=== PATIENT | male | born 1945 | race Caucasian/White ===

== ENCOUNTER 2022-10-07 12:15 | Observation (INO) | payer OTHER, MEDICARE ==
[~2022-10-07] VITALS: Ht 175.3 cm; Wt 88.8 kg
[2022-10-07] VITALS (16 sets, daily range): BP systolic 83–159; BP diastolic 47–81
[2022-10-07] MEDS ORDERED: ALENDRONATE SOD70 MG PO (12:43)
[2022-10-07] MEDS ORDERED: VITAMIN D2000 UNI1 PO (12:44)
[2022-10-07] MEDS ORDERED: LIPITOR20 M1 PO (12:44)
[2022-10-07] MEDS ORDERED: QC VITAMIN B (12:47)
[2022-10-07] MEDS ORDERED: FOLIC ACID1 MG PO (12:48)
[2022-10-07] MEDS ORDERED: LISINOPRIL10 MG PO (12:48)
[2022-10-07] MEDS ORDERED: TAMSULOSIN HCL0.4 MG PO (12:49)
[2022-10-07] MEDS ORDERED: VYZULTA0.024 % (12:50)
[2022-10-07] MEDS ORDERED: PREDNISONE5 MG PO (12:51)
[2022-10-07 13:40] LABS: BASO% 0.4 % (0-3); EOS% 1.5 % (0-8); HEMATOCRIT 37.6 % (39.0-50.0); HEMOGLOBIN 12.4 g/dl (14.0-18.0); IMMATURE GRANULOCYTES 0.2 % (0.0-5.0); LYMPH% 12.4 % (15-41); MEAN CELL VOLUME 89.7 fL CALC (80.0-100.0); MEAN CORPUSCULAR HGB 29.6 pG CALC (26.0-32.0); MONO% 8.4 % (2-13); NEUT# 7.63 thou/uL (1.82-7.42); NEUT% 77.1 % (42-76); RED BLOOD COUNT 4.19 mill/uL (4.70-6.10); RED CELL DISTRI WIDTH 12.3 % (11.5-15.5)
[2022-10-07 13:50] LABS: ALBUMIN 4.1 g/dL (3.2-5.0); ALKALINE PHOSPHATASE 59 u/l (38-126); ANION GAP 11 (6-22 (CALC)); BILIRUBIN, TOTAL 0.6 mg/dL (0.2-1.3); BUN 23 mg/dL (8-23); BUN/CREATININE RATIO 14 (12-20 (CALC)); CARBON DIOXIDE 23 mmol/l (22-30); CHLORIDE 109 mmol/l (95-108); CREATININE 1.7 mg/dL (0.7-1.3); GFR FOR AFR.AMER. 48 ML/MIN (>=60 (CALC)); GFR OTHER RACES 39 ML/MIN (>=60 (CALC)); POTASSIUM 3.8 mmol/l (3.5-5.1); SGOT/AST 27 u/l (19-48); SODIUM 139 mmol/l (137-146); TOTAL PROTEIN 7.4 g/dL (6.3-8.2)
[2022-10-07 15:07] LABS: URINE BILIRUBIN - DIPSTICK NEGATIVE (NEGATIVE); URINE BLOOD DIPSTICK NEGATIVE (NEGATIVE); URINE COLOR YELLOW; URINE GLUCOSE - DIPSTICK NEGATIVE (NEGATIVE); URINE KETONE NEGATIVE (NEGATIVE); URINE LEUK ESTERASE NEGATIVE (NEGATIVE); URINE PROTEIN - DIPSTICK NEGATIVE (NEG-TRACE); URINE UROBILINOGEN - DIPSTICK 0.2 E.U./dL (0.2)
[2022-10-07 15:13] LABS: URINE NITRITE - DIPSTICK NEGATIVE (Negative)
[2022-10-08] VITALS: BP 132/76
[2022-10-08 04:51] VITALS: BP 139/75
[2022-10-08 05:22] LABS: BASO% 0.5 % (0-3); EOS% 0.5 % (0-8); HEMATOCRIT 37.9 % (39.0-50.0); HEMOGLOBIN 12.7 g/dl (14.0-18.0); IMMATURE GRANULOCYTES 0.2 % (0.0-5.0); LYMPH% 10.9 % (15-41); MEAN CORPUSCULAR HGB 30.2 pG CALC (26.0-32.0); MEAN CORPUSCULAR HGB CONC 33.5 g/dL CAL (32.0-36.0); NEUT# 4.87 thou/uL (1.82-7.42); NEUT% 83.9 % (42-76); RED BLOOD COUNT 4.21 mill/uL (4.70-6.10); RED CELL DISTRI WIDTH 12.2 % (11.5-15.5)
[2022-10-08 05:39] LABS: ALBUMIN 3.5 g/dL (3.2-5.0); ALKALINE PHOSPHATASE 59 u/l (38-126); BILIRUBIN, TOTAL 0.4 mg/dL (0.2-1.3); BUN 21 mg/dL (8-23); BUN/CREATININE RATIO 18 (12-20 (CALC)); CARBON DIOXIDE 21 mmol/l (22-30); CHLORIDE 113 mmol/l (95-108); CREATININE 1.1 mg/dL (0.7-1.3); GFR FOR AFR.AMER. > 60 ML/MIN (>=60 (CALC)); GFR OTHER RACES > 60 ML/MIN (>=60 (CALC)); SGOT/AST 19 u/l (19-48); SODIUM 140 mmol/l (137-146); TOTAL PROTEIN 6.5 g/dL (6.3-8.2)
[2022-10-08 05:44] LABS: ANION GAP 11 (6-22 (CALC)); POTASSIUM 4.6 mmol/l (3.5-5.1)
[2022-10-08 06:45] VITALS: BP 163/85
[2022-10-08 08:00] VITALS: BP 125/76; BP 137/79; BP 158/82
[2022-10-08 08:23] VITALS: BP 159/82
== END 2022-10-08 10:24 | disposition home or self-care (01) | DRG 312 ==
LOC: ED 12:15 → MS2 14:14 → ED 14:15 → ED-I 14:16 → MS2 10-08 10:24
PROVIDERS: Emergency Medicine; Nurse Practitioner Family; ADMIT Internal Medicine; ATTEND Internal Medicine
DX: I95.1 Orthostatic hypotension (principal); N17.9 Acute kidney failure, unspecified; I10 Essential (primary) hypertension; M06.9 Rheumatoid arthritis, unspecified; E78.5 Hyperlipidemia, unspecified; N40.1 Benign prostatic hyperplasia with lower urinary tract symptoms; R35.0 Frequency of micturition; Z85.46 Personal history of malignant neoplasm of prostate
CPT/HCPCS: J1650